=== PATIENT | male | born 1935 | race Caucasian/White ===

== ENCOUNTER 2016-07-24 08:03 | Day surgery (SDC) | payer MEDICARE, OTHER ==
--- NOTE | ~2016-07-24 | OP ---
Record Of Operation [facility] [address] [place]. [address] NAME: MATTHEW CASEY : 33 STATUS : [facility]#: [id number] AGE: 80 ADM/REG DATE : 07/24/16 MR#: [id number] REPORT SERV DATE: 07/24/16 DICTATED BY: LIAM SIFUENTES DATE: 07/24/16 REPORT STATUS : Draft TRANSCRIBED BY: MODL DATE: 07/24/16 DATE OF PROCEDURE: 07/24/2016 PREOPERATIVE DIAGNOSIS: Left hydrocele, symptomatic. POSTOPERATIVE DIAGNOSIS: Left hydrocele, symptomatic. PROCEDURE: Left hydrocelectomy. SURGEON: Liam Sifuentes M.D. DIRECTOR PROCESS: Bertin Spangler. ANESTHESIA: General and local. ESTIMATED BLOOD LOSS: 5 mL. FLUID REPLACEMENT: 600 mL. DRAINS: None. INDICATION: 80-year-old male with a symptomatic left hydrocele. The 's administration has drained percutaneously twice and has recurred. He wants it repaired permanently. He is aware of recurrence rates "at a 10%." TECHNIQUE: The patient was identified, brought to the operating room, administered general anesthetic agent by the anesthesia service and intubated. He was positioned into the supine position. The scrotum was shaved. The entire lower abdomen, penis, groin, scrotum, and perineum were prepped and draped in the usual sterile fashion. 0.5% Marcaine plain was infiltrated into the median raphe of the scrotum. An 8 cm skin incision was made through the median raphe of the scrotum, the dependent portion of the scrotum. It was carried into the right hemiscrotum with the Bovie cautery. The tunica vaginalis was dissected out completely, and the entire hydrocele complex was delivered out of the wound. I skeletonized the cremasteric fibers and fascias all the way down to the tunica vaginalis. Once I got down to adjacent tunica vaginalis on the spermatic cord, I opened the hydrocele sac and drained some straw-colored fluid out of it. I then excised 90% of the hydrocele sac and sent it off as a left hydrocele sac. I then wrapped the remainder of the tunic vaginalis around the posterior side of the spermatic cord and suture it with running 3-0 Vicryl. The wound was irrigated copiously. The testis was placed back into its anatomic location in the left hemiscrotum and pexed to the median lateral wall with 3-0 Vicryl. I then closed dartos layer with a running 3-0 Vicryl. The skin was closed with running 4-0 Monocryl. The patient was catheterized as his bladder was drained. Dressing of Dermabond, fluff, and scrotal support were then applied. The patient was awakened and taken to the recovery unit in stable and satisfactory condition. Record Of Operation [facility] [address] [place]. [address] NAME: MATTHEW CASEY : 33 STATUS : [facility]#: [id number] AGE: 80 ADM/REG DATE : 07/24/16 MR#: [id number] REPORT SERV DATE: 07/24/16 DICTATED BY: LIAM SIFUENTES DATE: 07/24/16 REPORT STATUS : Draft TRANSCRIBED BY: DARLENE DATE: 07/24/16 PF/DARLENE Liam Sifuentes M.D. / [id number] CC: Sherry Barone MD
[~2016-07-24 08:03] MED LIST: ACTOS30 PO; CYANO1000T PO; DRISDOL50000 UNT PO; LEVOTHYROXIN175 MCG PO; LIPITOR40 PO; LIPITOR80 MG PO; LOTE10 PO; METAMUCIL CAN7 OZ PO; MONO10 PO; NAP250 PO; NEUR600 PO; NEUR800 PO; OTC NASAL SPRAY NAS; P5 PO; PROSCAR5 PO; SPIRIVA INH; SYNTHROID175 MCG PO; T300 PO; TRAZ100 PO; ULTRAM50 PO; VENTOLIN HFA INH; VITAMIN D1000 UNI1 PO; VITAMIN D31000 UNIT PO; VITD PO; ZOCOR80 MG PO
== END 2016-07-24 17:42 | disposition home or self-care (01) ==
LOC: SDC 08:03
PROVIDERS: Urology
PROC: 0VB70ZZ Excision of Left Tunica Vaginalis, Open Approach (ICD-10-PCS; principal; 2016-07-24 10:00)
DX: N43.3 Hydrocele, unspecified (principal); I10 Essential (primary) hypertension; E11.9 Type 2 diabetes mellitus without complications; E03.9 Hypothyroidism, unspecified; J44.9 Chronic obstructive pulmonary disease, unspecified; Z88.2 Allergy status to sulfonamides; Z88.5 Allergy status to narcotic agent; Z79.52 Long term (current) use of systemic steroids; Z79.899 Other long term (current) drug therapy
CPT/HCPCS: 80048; 82962; 85025; 85610; 85730; 88302; 93005; J0690; J2405; J3010